=== PATIENT | male | born 1950 | race Caucasian/White ===

== ENCOUNTER → 2016-10-26 | Outpatient (CLI) | payer MEDICARE, BC ==
[2016-10-26 09:40] LABS: CHLORIDE,CL 104 mmol/L (98-110); SODIUM,NA 141 mmol/L (136-146)
== END ==
LOC: MW.CHFP 08:57
PROVIDERS: ATTEND Student in an Organized Health Care Education/Training Program
DX: Z12.5 Encounter for screening for malignant neoplasm of prostate (principal); I10 Essential (primary) hypertension; E78.00 Pure hypercholesterolemia, unspecified; Z23 Encounter for immunization
CPT/HCPCS: 36415; 80053; 80061; 90732; 99214; G0009; G0103

== ENCOUNTER 2017-07-20 09:53 | Day surgery (SDC) | payer MEDICARE, BC ==
[~2017-07-20 09:53] MED LIST: Lactated Ringers 1,000 ML IV SCH; Sodium Chloride 0.9% 10 ML Syringe FLUSH PRN; Sodium Chloride 0.9% 2.5 ML Syringe FLUSH PRN
--- NOTE | 2017-07-20 11:07 | PCM.PREANE ---
Preanesthetic Assessment - Anesthesia/Transfusion/Family Hx Anesthesia History: Prior Anesthesia Without Reaction Family History of Anesthesia Reaction: No Transfusion History: No Prior Transfusion(s) Intubation History: Unknown - Review of Systems General: No Symptoms Pulmonary: No Symptoms Cardiovascular: No Symptoms Gastrointestinal: Difficulty Swallowing Neurological: No Symptoms Other: Reports: None - Physical Assessment O2 Sat by Pulse Oximetry: 98 Respiratory Rate: 16 Vital Signs: Last Vital Signs Temp 36.0 C 07/20/17 10:18 Pulse 55 L 07/20/17 10:18 Resp 16 07/20/17 10:18 BP 140/76 07/20/17 10:18 Pulse Ox 98 07/20/17 10:18 Height: 1.85 m Weight: 88.904 kg ASA Class: 2 Mental Status: Alert & Oriented x3 Airway Class: Mallampati = 3 Dentition: Reports: Normal Dentition Thyro-Mental Finger Breadths: 2 Mouth Opening Finger Breadths: 3 ROM/Head Extension: Full Lungs: Clear to Auscultation, Normal Respiratory Effort Cardiovascular: Regular Rate, Regular Rhythm - Allergies Allergies/Adverse Reactions: Allergies Allergy/AdvReac Type Severity Reaction Status Date / Time No Known Allergies Allergy Verified 07/15/17 11:47 - Blood Blood Available: No - Anesthesia Plan Pre-Op Medication Ordered: None - Acknowledgements Anesthesia Type Planned: MAC Pt an Appropriate Candidate for the Planned Anesthesia: Yes Alternatives and Risks of Anesthesia Discussed w Pt/Guardian: Yes Pt/Guardian Understands and Agrees with Anesthesia Plan: Yes PreAnesthesia Questionnaire HEENT History: Reports: Hard of Hearing Other HEENT History: wears glasses, has bilateral hearing aides Cardiovascular History: Reports: High Cholesterol, Hypertension Respiratory History: Reports: Sleep Apnea Other Respiratory History: uses CPAP Gastrointestinal History: Reports: GERD, Other (See Below) Other Gastrointestinal History: dysphagia Neurological History: Reports: Other (See Below) Other Neuro History: hx of motion sickness Dermatologic History: Reports: Eczema - Past Surgical History HEENT Surgical History: Reports: Naso-Sinus Surgery Other HEENT Surgeries/Procedures: septoplasty GI Surgical History: Reports: Colonoscopy (x2 , last one in ) - SUBSTANCE USE Smoking Status *Q: Never Smoker Recreational Drug Use History: No - HOME MEDS Home Medications: Home Meds Aspirin [Adult Low Dose Aspirin EC] 81 mg PO DAILY 07/15/17 [History] Clobetasol [Clobetasol Propionate 0.05%] 1 dose TOP ASDIRECTED PRN 07/15/17 [ History] Hydrochlorothiazide 25 mg PO DAILY 07/15/17 [History] Multivitamin [Multiple Vitamins] 1 tab PO DAILY 07/15/17 [History] Omeprazole 20 mg PO DAILY 07/15/17 [History] Simvastatin [Zocor] 20 mg PO BEDTIME 07/15/17 [History] - CURRENT (IN HOUSE) MEDS Current Meds: Current Medications Lactated Ringer's (Ringers, Lactated) 1,000 mls @ 125 mls/hr IV ASDIRECTED CAROL Last Admin: 07/20/17 10:16 Dose: 125 mls/hr Sodium Chloride (Saline Flush) 10 ml FLUSH ASDIRECTED PRN PRN Reason: Keep Vein Open Sodium Chloride (Saline Flush) 2.5 ml FLUSH ASDIRECTED PRN PRN Reason: Keep Vein Open
[2017-07-20] MEDS ORDERED: Midazolam 1 MG/ML 2 ML SDV ONE (11:41)
[2017-07-20] MEDS ORDERED: Lidocaine 2% 5 ML SDV ONE (11:41)
[2017-07-20] MEDS ORDERED: Propofol 200 MG/20 ML SDV ONE (11:41)
--- NOTE | 2017-07-20 12:06 | PCM.OPNOTE ---
- General Post-Op/Procedure Note Date of Surgery/Procedure: 07/20/17 Operative Procedure(s): EGD with biopsy Findings: Hyperplastic polyp in body of stomach. Small hiatal hernia with associated ring Pre Op Diagnosis: Dysphagia Post-Op Diagnosis: Small hiatal hernia with esophageal ring, hyperplastic gastric polyps Anesthesia Technique: MAC Primary Surgeon: Catrina Pina Condition: Good
--- NOTE | 2017-07-20 12:19 | PCM.POSTAN ---
POST ANESTHESIA ASSESSMENT - MENTAL STATUS Mental Status: Alert, Oriented - RESPIRATORY Respiratory Status: Respiratory Rate WNL, Airway Patent, O2 Saturation Stable - CARDIOVASCULAR CV Status: Pulse Rate WNL - GASTROINTESTINAL GI Status: No Symptoms - PAIN Pain Score: 0 - POST OP HYDRATION Hydration Status: Adequate & Stable - OBSERVATIONS Free Text/Narrative:: no anesthesia problems
--- NOTE | 2017-07-20 12:41 | OR ---
SURGEON: ABHILASH GIRON MD DATE OF PROCEDURE: 07/20/2017 PREOPERATIVE DIAGNOSIS: Dysphagia. POSTOPERATIVE DIAGNOSES: 1. Hiatal hernia. 2. Hyperplastic polyps, stomach. 3. Lower esophageal ring. PROCEDURE PERFORMED: Diagnostic esophagogastroduodenoscopy with biopsies. ANESTHESIA: MAC. INSTRUMENT USED: Olympus endoscope. EXTENT OF EXAM: Second portion of the duodenum. PREPARATION: Good. LIMITATIONS: None. INDICATIONS FOR EXAMINATION: The patient is a 66-year-old male, who presents with dysphagia. 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 A decision was made to proceed with an upper endoscopy to rule out any esophagitis or gastritis. The patient and I discussed the procedure as well as expected perioperative course. We discussed the risks, including bleeding, infection, or damage to surrounding structures, including perforation. The patient verbalized understanding and wishes to proceed. PROCEDURE IN DETAIL: The patient was brought into the endoscopy suite and placed in a beach chair position. A time-out was completed verifying the patient's name, age, date of , allergies, and procedure to be performed. A bite block was placed in the patient's mouth and monitored anesthesia care induced. Continuous oxygen was provided via nasal cannula throughout the procedure. After adequate sedation was achieved, a well lubricated endoscope was placed in the patient's mouth and advanced under direct visualization to the second portion of the duodenum. This appeared normal and a photograph was taken. The scope was then fully withdrawn while examining the color, texture, anatomy, and integrity of the mucosa of the upper GI tract. The remainder of the duodenal mucosa appeared normal. The scope was brought into the stomach and a photograph was taken of the pylorus as well as the GE junction. The patient was noted to have a very small hiatal hernia. Upon inspecting the gastric mucosa, the patient had several hyperplastic polyps along the body of the stomach. The largest one of these was approximately 2 to 4 mm in size. It was removed using a cold biopsy forceps and sent to pathology labeled as gastric polyp. Biopsy was taken of the gastric antrum, body, and fundus and sent for H. pylori and histologic testing. The scope was then brought into the distal esophagus. Upon entering the distal esophagus, I noted a very small hiatal hernia associated with the esophageal ring. This did not appear to cause any significant narrowing of the esophagus itself and the area was widely patent. A photograph was taken. I continued to withdraw the scope, and the remainder of the esophageal mucosa appeared normal with no evidence of esophagitis. The scope was then removed from the patient and the procedure terminated. The patient was taken to the PACU in stable condition. ENDOSCOPIC DIAGNOSES: 1. Hiatal hernia. 2. Esophageal ring. 3. Hyperplastic gastric polyps. RECOMMENDATIONS: We will start the patient on Zantac as he states that omeprazole give him an upset stomach. We will see him again in clinic in 2 weeks. HAL KELLEY /[id number]
== END 2017-07-20 12:50 | disposition home or self-care (01) ==
LOC: MW.SDS 09:53
PROVIDERS: ATTEND Surgery
DX: K31.7 Polyp of stomach and duodenum (principal); K44.9 Diaphragmatic hernia without obstruction or gangrene; K22.2 Esophageal obstruction; L57.0 Actinic keratosis; L30.9 Dermatitis, unspecified; I10 Essential (primary) hypertension; K21.9 Gastro-esophageal reflux disease without esophagitis; E78.00 Pure hypercholesterolemia, unspecified; H61.21 Impacted cerumen, right ear; M25.552 Pain in left hip; L98.9 Disorder of the skin and subcutaneous tissue, unspecified; L91.8 Other hypertrophic disorders of the skin; G47.30 Sleep apnea, unspecified; Z79.82 Long term (current) use of aspirin; Z79.899 Other long term (current) drug therapy; Z99.89 Dependence on other enabling machines and devices; Z98.890 Other specified postprocedural states
CPT/HCPCS: 43239; J2250; J7120; 00731; 88305; 88312; J2704

== ENCOUNTER 2020-09-12 07:37 | Day surgery (SDC) | payer MEDICARE, OTHER ==
[~2020-09-12 07:37] MED LIST changes: +Propofol 200 MG/20 ML SDV ONE; -Sodium Chloride 0.9% 10 ML Syringe FLUSH PRN; -Sodium Chloride 0.9% 2.5 ML Syringe FLUSH PRN; +fentaNYL 100 MCG/2 ML SDV ONE
--- NOTE | 2020-09-12 08:19 | PCM.PREANE ---
Preanesthetic Assessment - Anesthesia/Transfusion/Family Hx Anesthesia History: Prior Anesthesia Without Reaction Family History of Anesthesia Reaction: No Transfusion History: No Prior Transfusion(s) Intubation History: Unknown - Review of Systems General: No Symptoms Pulmonary: No Symptoms Cardiovascular: No Symptoms Gastrointestinal: No Symptoms Neurological: No Symptoms Other: Reports: None - Physical Assessment NPO Status Date: 09/11/20 NPO Status Time: 23:00 Vital Signs: Last Vital Signs Temp 36 C L 09/12/20 07:51 Pulse 67 09/12/20 07:51 Resp 16 09/12/20 07:51 BP 151/86 H 09/12/20 07:51 Pulse Ox 98 09/12/20 07:51 Height: 1.85 m Weight: 89.811 kg ASA Class: 2 Mental Status: Alert & Oriented x3 Airway Class: Mallampati = 2 Dentition: Reports: Normal Dentition Thyro-Mental Finger Breadths: 3 Mouth Opening Finger Breadths: 3 ROM/Head Extension: Full Lungs: Clear to Auscultation, Normal Respiratory Effort Cardiovascular: Regular Rate, Regular Rhythm - Allergies Allergies/Adverse Reactions: Allergies Allergy/AdvReac Type Severity Reaction Status Date / Time No Known Allergies Allergy Verified 09/12/20 07:59 - Acknowledgements Anesthesia Type Planned: MAC (The patient understands and accepts the anesthetic risks and benefits of MAC. All questions answered. Consent signed. ) Pt an Appropriate Candidate for the Planned Anesthesia: Yes Alternatives and Risks of Anesthesia Discussed w Pt/Guardian: Yes Pt/Guardian Understands and Agrees with Anesthesia Plan: Yes PreAnesthesia Questionnaire HEENT History: Reports: Cataract, Hard of Hearing, Retinal Detachment, Other (See Below) Other HEENT History: wears glasses, has bilateral hearing aides but rarely wears them Cardiovascular History: Reports: High Cholesterol, Hypertension Respiratory History: Reports: Sleep Apnea Other Respiratory History: uses CPAP every night Gastrointestinal History: Reports: GERD (controlled), Other (See Below) Other Gastrointestinal History: occasional heartburn Genitourinary History: Reports: None Musculoskeletal History: Reports: None Neurological History: Reports: Other (See Below) Other Neuro History: hx of motion sickness Psychiatric History: Reports: None Endocrine/Metabolic History: Reports: None Hematologic History: Reports: None Immunologic History: Reports: None Oncologic (Cancer) History: Reports: None Dermatologic History: Reports: Eczema - Infectious Disease History Infectious Disease History: Reports: Other (See Below) (COVID NEGATIVE) - Past Surgical History Head Surgeries/Procedures: Reports: None HEENT Surgical History: Reports: Cataract Surgery, Detached Retina Other HEENT Surgeries/Procedures: septoplasty Cardiovascular Surgical History: Reports: None Respiratory Surgical History: Reports: None GI Surgical History: Reports: Colon, Colonoscopy, EGD Male Surgical History: Reports: None Endocrine Surgical History: Reports: None Neurological Surgical History: Reports: None Musculoskeletal Surgical History: Reports: None Oncologic Surgical History: Reports: None Dermatological Surgical History: Reports: None - History Comment History Comment: ETOH "1X A MONTH" - SUBSTANCE USE Tobacco Use Status *Q: Never Tobacco User Recreational Drug Use History: No - HOME MEDS Home Medications: Home Meds Aspirin [Adult Low Dose Aspirin EC] 81 mg PO DAILY 07/15/17 [History] Clobetasol [Clobetasol Propionate 0.05% Cream] 1 dose TOP ASDIRECTED PRN 07/15/17 [History] Multivitamin [Multiple Vitamins] 1 tab PO DAILY 07/15/17 [History] Simvastatin [Zocor] 20 mg PO BEDTIME 07/15/17 [History] hydroCHLOROthiazide [Hydrochlorothiazide] 25 mg PO DAILY 07/15/17 [History]
[2020-09-12] MEDS ORDERED: Naloxone 0.4 MG/ML Syringe IVPUSH PRN (08:20)
[2020-09-12] MEDS ORDERED: fentaNYL 100 MCG/2 ML SDV IVPUSH PRN (08:20)
[2020-09-12] MEDS ORDERED: Atropine 0.1 MG/ML 10 ML Syringe IVPUSH PRN ×2 (08:20)
[2020-09-12] MEDS ORDERED: 50% Dextrose in Water 50 ML Syringe IVPUSH PRN (08:20)
[2020-09-12] MEDS ORDERED: Albuterol 0.083% 2.5 MG/3 ML Neb Soln NEB PRN (08:20)
[2020-09-12] MEDS ORDERED: EPINEPHrine 1:10,000 1 MG/10 ML Syringe IVPUSH PRN (08:20)
[2020-09-12] MEDS ORDERED: Midazolam 1 MG/ML 2 ML SDV ONE (08:35)
[2020-09-12] MEDS ORDERED: Propofol 200 MG/20 ML SDV ONE ×2 (09:19→09:38)
--- NOTE | 2020-09-12 10:05 | PCM.OPNOTE ---
- General Post-Op/Procedure Note Date of Surgery/Procedure: 09/12/20 Operative Procedure(s): Colonoscopy Pre Op Diagnosis: Desire for colorectal cancer screening. Family history of colon cancer. Post-Op Diagnosis: Very poor bowel prep. Colonoscope was able to reach the c ecum without any obvious obstructing neoplasm. Anesthesia Technique: MAC (ASA II) Primary Surgeon: Damian Garber Condition: Good Free Text/Narrative:: DICTATION [id number] CPT CODE 14310
[2020-09-12] MEDS ORDERED: Lactated Ringers 1,000 ML IV SCH (10:15)
--- NOTE | 2020-09-12 10:15 | PCM.POSTAN ---
POST ANESTHESIA ASSESSMENT - MENTAL STATUS Mental Status: Alert, Oriented - VITAL SIGNS Vital Signs: Last Vital Signs Temp 36 C L 09/12/20 07:51 Pulse 49 L 09/12/20 10:09 Resp 11 L 09/12/20 10:09 BP 118/73 09/12/20 10:09 Pulse Ox 96 09/12/20 10:09 - RESPIRATORY Respiratory Status: Respiratory Rate WNL, Airway Patent, O2 Saturation Stable - CARDIOVASCULAR CV Status: Pulse Rate WNL, Blood Pressure Stable - GASTROINTESTINAL GI Status: No Symptoms - POST OP HYDRATION Hydration Status: Adequate & Stable - OBSERVATIONS Free Text/Narrative:: The patient is awake, alert and in no acute distress. He tolerated the procedure. Discharge to phase 2 per criteria.
--- NOTE | 2020-09-12 11:02 | OR ---
SURGEON: Damian Garber M.D. DATE OF PROCEDURE: 09/12/2020 OPERATION PERFORMED: Attempted colonoscopy. PRIMARY SURGEON: Damian Garber MD. ANESTHESIA: MAC. ASA CLASSIFICATION: II. PREOPERATIVE DIAGNOSES: 1. Desire for colorectal cancer screening. 2. Family history of colon cancer. POSTOPERATIVE DIAGNOSES: 1. Very poor bowel prep. 2. No obvious obstruction to passage of the scope to the cecum. DESCRIPTION OF PROCEDURE: The patient was taken to the endoscopy room, positioned on the endoscopy table in the left lateral decubitus position. Time-out was called for appropriate identification of the patient and procedure. Monitored anesthesia care was provided. Digital rectal examination was done and did not reveal any obstruction in the rectum. The prostate felt soft and no nodules were noted. The colonoscope was then inserted into the rectum. Immediately, we were met by a large amount of viscous fecal material. I was able with copious irrigation to eventually advance the scope to the cecum. The cecum was identified by internal landmarks and external pressure. Despite multiple attempts, I could not retroflex the colonoscope. It was elected to withdraw the scope. Despite again copious irrigation, there was a large amount of very thick viscid fecal material. The attempt was made to visualize all levels of the colon, and certainly, small and medium polyps could be missed. Again, there was no obvious obstruction to instrumentation of the colon, but no good visualization was obtained despite irrigating with several 100 mL of saline and over 1 L of liquid fecal material was aspirated. Once the colonoscope was withdrawn to the rectum, it was retroflexed to visualize the anal orifice from above. Again, no tumors or polyps were seen and there were no acute hemorrhoidal changes. The colonoscope was then straightened, the procedure terminated, and the patient taken to recovery room in stable condition. XI / ALLIE /[id number]
--- NOTE | 2020-09-12 11:05 | PCM48HPAN ---
Post Anesthesia Note - EVALUATION WITHIN 48HRS OF ANESTHETIC Vital Signs in Normal Range: Yes Patient Participated in Evaluation: Yes Respiratory Function Stable: Yes Airway Patent: Yes Cardiovascular Function Stable: Yes Hydration Status Stable: Yes Pain Control Satisfactory: Yes Nausea and Vomiting Control Satisfactory: Yes Mental Status Recovered: Yes Vital Signs: Last Vital Signs Temp 35.9 C L 09/12/20 10:20 Pulse 56 L 09/12/20 10:20 Resp 16 09/12/20 10:20 BP 134/78 09/12/20 10:20 Pulse Ox 97 09/12/20 10:20
== END 2020-09-12 11:16 | disposition home or self-care (01) ==
LOC: MW.SDS 07:37
PROVIDERS: ATTEND Surgery
DX: K59.00 Constipation, unspecified (principal); I10 Essential (primary) hypertension; E78.00 Pure hypercholesterolemia, unspecified; G47.30 Sleep apnea, unspecified; Z79.82 Long term (current) use of aspirin; Z79.899 Other long term (current) drug therapy; Z80.0 Family history of malignant neoplasm of digestive organs; Z98.890 Other specified postprocedural states
CPT/HCPCS: 45378; J2250; J2704; J7120; J3010

== ENCOUNTER 2021-07-29 07:38 | Emergency (ER) | payer MEDICARE, OTHER ==
[2021-07-29] MEDS ORDERED: Sodium Chloride 0.9% 10 ML Syringe FLUSH PRN (07:53)
[2021-07-29] MEDS ORDERED: Lactated Ringers 1,000 ML IV ONE (07:53)
[2021-07-29] MEDS ORDERED: Ondansetron 4 MG/2 ML SDV IVPUSH ONE (07:53)
[2021-07-29] MEDS ORDERED: Sodium Chloride 0.9% 2.5 ML Syringe FLUSH PRN (07:53)
[2021-07-29 09:01] LABS: CARBON DIOXIDE,CO2 22.6 mmol/L (21.0-32.0); POTASSIUM,K 3.7 mmol/L (3.5-5.1)
[2021-07-29] MEDS ORDERED: Iopamidol 755 MG/ML 500 ML Multipack Bottle IVPUSH STA (09:28)
== END 2021-07-29 10:52 | disposition home or self-care (01) ==
LOC: MW.ED 07:38
DX: K52.9 Noninfective gastroenteritis and colitis, unspecified (principal); I10 Essential (primary) hypertension; K21.9 Gastro-esophageal reflux disease without esophagitis; Z79.82 Long term (current) use of aspirin; Z79.899 Other long term (current) drug therapy
CPT/HCPCS: 36415; 74177; 80053; 83605; 83690; 83735; 85025; 96374; 99284; J2405; J7120; Q9967